=== PATIENT | female | born 1950 | race Caucasian/White ===

== ENCOUNTER → 2017-02-20 | Day surgery (SDC) | payer OTHER ==
[2017-01-23 08:17] VITALS: Ht 167.6 cm; Wt 109.1 kg
[~2017-02-20] VITALS: Ht 167.6 cm; Wt 109.1 kg
[~2017-02-20] MED LIST: 500ML BSS 0.3ML EPI 1:1000PF IRRIG ONE; ACETAMINOPHEN 325 MG TAB PO PRN; AMVISC PLUS 0.8ML SYRINGE INT OCU ONE; ATROPINE SULFATE 0.1 MG/ML 5ML SYR IV PRN; ATROPINE SULFATE 1% OP SOLN 2 ML BTL ONE; AcetylCHOLine CHL OP SOL 1:100 2 ML BTL ONE; BRIMONIDINE TART 0.2% OP SOLN PER DROP CHARGE ONE; BSS FLUSH ONE; CYAN10005 PO; EpHEDrine SULFATE INJ 50 MG/ML AMP IV PRN; EpINEphrine INJ 1MG/ML AMP 1 MG/ML AMP ONE; FENTANYL CITRATE INJ 50 MCG/1 ML 2 ML VIAL ONE; GLUCTAB7 PO; HEALON 10MG/ML 0.85 ML SYR INSTIL ONE; LACTATED RINGER'S 1000ML 500 ML IV SCH; LATA0.5S OPB; LEVO125T4 PO; LIDOCAINE 4% OP SOLN DROP CHARGE ONE; LIDOCAINE 4% OP SOLN DROP CHARGE OPL SCH; LIDOCAINE HCL 1% MPF 2 ML VIAL ONE; LOSA1TAB38 PO; MIDAZOLAM HCL 1 MG/ML 2ML VIAL ONE; MOXIFLOXACIN OPH SOLN PER DROP CHARGE ONE; NVLNI SC; NVLRB SC; OMEG10007 PO; ONDANSETRON INJ 2 MG/ML 2 ML VIAL IV PRN; POVIDONE-IODINE OP SOLN 30 ML BTL ONE; PROPARACAINE 0.5% OP SOLN PER DROP CHARGE OPL SCH; SIMV20TA2 PO; SPR25 PO; TETRACAINE HCL (OPHTH) 60 DROPS/4 ML BTL OP ONE; TIMO0.5S35 OPB; TOBRAMYCIN/DEXAMETHASONE OPH OINT PER APPLN CHARGE ONE; [UNRECOGNIZED DRUG - CODE] OPL
[2017-02-20] MEDS: PHENYLEPHRINE HCL 2.5% OP SOLN PER DROP CHARGE OPL SCH ×2 (10:08→10:13)
[2017-02-20] MEDS: TROPICAMIDE 1% OP SOLN PER DROP CHARGE OPL SCH ×2 (10:09→10:14)
[2017-02-20] MEDS: CYCLOPENTOLATE HCL 1% OP SOLN PER DROP CHARGE OPL SCH ×2 (10:10→10:15)
[2017-02-20] MEDS: KETOROLAC 0.5% OP SOLN PER DROP CHARGE OPL SCH ×2 (10:11→10:16)
[2017-02-20] MEDS: MOXIFLOXACIN OPH SOLN PER DROP CHARGE OPL SCH ×2 (10:12→10:23)
--- NOTE | 2017-02-20 10:31 | History & Physical Bridge - [place] ---
H&P Re-Evaluation Bridge Note: I have examined the patient, reviewed the History & Physical and in the interval since the performance of the History & Physical I have noted the following changes of clinical significance: No changes noted
--- NOTE | 2017-02-20 12:15 | Discharge Instructions-SurgCtr ---
Discharge Instructions Date of Service Feb 20, 2017. Visit Reason for Visit: Cataract Left Eye, Endothelial Corneal Dystrophy Discharge Discharge Diagnosis / Problem: cataract left eye Discharge Goals Goal(s): Improve function Activity Recommendations Activity Limitations: per Instructions/Follow-up section Lifting Limitations: none Anesthesia . Post Anesthesia Instructions: If you have had General Anesthesia or IV Sedation: * Do not drive today. * Resume driving when surgeon permits. * Do not make important decisions or sign legal documents today. * Call surgeon for: 1. Temperature elevations greater than 101 degrees F. 2. Uncontrollable pain. 3. Excessive bleeding. 4. Persistent nausea and vomiting. 5. Medication intolerance (nausea, vomiting or rash). * For nausea and vomiting use only clear liquids such as: tea, soda, bouillon until nausea subsides, then gradually increase diet as tolerated. * If you have any concerns or questions, call your surgeon's office. If physician is unavailable and it is an emergency, call 911 or go to the nearest emergency room. . Instructions / Follow-Up Instructions / Follow-Up ACTIVITY RECOMMENDATIONS: * Bedrest (eyes to the domingo) MEDICATIONS: Resume previous medications unless instructed otherwise by your surgeon. Eye drops (today and tomorrow): Cipro - one drop in operative eye every 2 hours while awake Prednisolone 1% - one drop in operative eye every 2 hours while awake Ilevro - one drop in operative eye 1 x daily Bromfenac - one drop in operative eye twice daily Timolol - one drop in operative eye once daily Latanoprost - one drop in operative eye once daily SPECIAL CARE INSTRUCTIONS: * If any problems or concerns, please call Dr. Orosco's office at . * Keep plastic shield taped over eye to sleep at night. * Keep plastic shield taped over eye except to administer eye drops. * Keep plastic shield on until office visit the following day. FOLLOW UP VISIT: Follow-up with Dr. Orosco in the [place] office as scheduled. If not already scheduled, please call the office at . Diet Recommendations Home Diet: resume previous diet Procedures Procedures Performed: Left Eye Descements Stripping Automated Endothelial Keratoplasty With Left Eye Cataract Extraction And Lens Implant Pending Studies Studies pending at discharge: no Medical Emergencies . Who to Call and When: Medical Emergencies: If at any time you feel your situation is an emergency, please call 911 immediately. . Non-Emergent Contact Non-Emergency issues call your: Material Clerk . . "Provider Documentation" section prepared by Manuel Orosco. .
--- NOTE | 2017-02-20 12:16 | [facility] Post Operative Brief Note ---
Immediate Operative Summary Operative Date Feb 20, 2017. Pre-Operative Diagnosis Cataract Left eye, Endothelial Corneal Dystrophy Post-Operative Diagnosis same as preop Procedure(s) Performed Left Eye Descements Stripping Automated Endothelial Keratoplasty With Left Eye Cataract Extraction And Lens Implant Surgeon Dr. Orosco Repair Order Clerk Surgeon(s) none Estimated Blood Loss 0ml Findings cataract/ corneal edema/ fuchs dystrophy left eye Fluids (cc crystalloids) see anesthesia record Specimens Culture of Corneal Rim Drains none Anesthesia local with sedation Complication(s) None Disposition Recovery Room / PACU
--- NOTE | 2017-02-20 12:55 | OPERATIVE REPORT ---
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 POSTOPERATIVE DIAGNOSES: Same. PROCEDURES PERFORMED: Phacoemulsification cataract extraction with intraocular lens placement and Descemet stripping automated endothelial keratoplasty, left eye. COMPLICATIONS: None. ESTIMATED BLOOD LOSS: None. ANESTHESIA: Local with sedation. DESCRIPTION OF PROCEDURE: After an informed consent was obtained in the holding area, attention was first turned to the donor cornea. It was placed endothelial side up on Linda trephine and trephinated with an 8.25-mm blade by myself. It was then covered in Optisol and set aside. The patient was then brought back to the operating room, where cardiac monitoring leads and oxygen by nasal cannula were administered by anesthesia. Gentle IV sedation was given and the patient's left eye was prepped and draped in the usual sterile fashion. A wire lid speculum was placed in the left eye and the operating microscope was swung into position. Using 0.12 forceps and a supersharp blade, a paracentesis port was made at the 5 o'clock position of the patient's left eye. 1% nonpreserved lidocaine was injected into the anterior chamber for anesthesia. A 2.0-mm keratome blade was then used to make a shelved clear cornea incision at the 3 o'clock position of the patient's left eye. The anterior chamber was then filled with Healon. The previously used Linda trephine was then inked and used to elsy the surface of the cornea. A curvilinear capsulorrhexis was then performed with the cystotome and Utrata forceps. BSS on a hydrodissection cannula was then used to hydrodissect the lens nucleus away from the capsular bag. The phacoemulsification handpiece was then used in a stop and chop fashion to remove the lens nucleus. Irrigation aspiration handpiece was then used to remove the residual cortical material. The eye was then filled with Healon. The main incision enlarged to 4 mm and a Bausch and Lomb MX60, 25.0 Diopter intraocular lens was injected into the capsular bag. Reversed Sinskey hook was then used to score Descemet's membrane around the marked diameter. Descemet stripper was then used to remove the strip Descemet's from within that diameter. A stromal loom blower was then used to roughen the stromal bed in the periphery of the stripped area. Irrigation aspiration handpiece was then used to remove the residual viscoelastic material from the eye. The donor cornea was then placed endothelial side up on an EndoSerter and retracted into the EndoSerter. The EndoSerter was then used to inject the donor cornea into the host eye through the primary incision. It was unfolded underneath BSS and air and a single 10-0 nylon suture was placed through the main incision. A complete air fill of the eye was then achieved and held for 15 minutes, during which time the cornea was covered in Healon. After 15 minutes was up, the Healon was rinsed off the cornea and 3 drops of atropine were placed on it. A [place] [employer] roller was then used to milk the interface. The cornea was then recovered using Amvisc and another 10 minutes elapsed. At the conclusion of 10 minutes, the Amvisc was rinsed from the surface of the cornea and a partial air fluid exchange was done leaving behind a 60% air fill of the anterior chamber. ReSure sealant was then placed over the primary incision and paracentesis. The wire lid speculum was removed from the eye. Vigamox, brimonidine and TobraDex ointment were placed on the eye and the eye was shielded. The patient tolerated the procedure well and was taken to recovery area to lay flat for an hour. I attest to the content of the Intraoperative Record and any orders documented therein. Any exceptions are noted below. PRAFUL
--- NOTE | 2017-02-20 13:09 | Anesthesia Progress Nt - [facility] ---
Anesthesia Post Op Note Date & Time Feb 20, 2017 at 13:09 Vital Signs Pain Intensity: 0 Vital Signs Past 12 Hours Date Time Temp Pulse Resp B/P (MAP) Pulse Ox O2 Delivery O2 Flow Rate FiO2 02/20/17 12:13 36.7 74 16 141/81 (101) 95 Room Air 02/20/17 09:58 36.7 75 22 129/80 (96) 97 Room Air Notes Mental Status: alert / awake / arousable, participated in evaluation Pt Amnestic to Procedure: Yes Nausea / Vomiting: adequately controlled Pain: adequately controlled Airway Patency, RR, SpO2: stable & adequate BP & HR: stable & adequate Hydration State: stable & adequate Anesthetic Complications: no major complications apparent
[2017-02-20 13:30] VITALS: BP 136/80; PULSE 78; O2SAT 96
== END | disposition home or self-care (01) ==
LOC: X.SURG 09:43
PROVIDERS: ATTEND Ophthalmology
DX: H25.12 Age-related nuclear cataract, left eye (principal); H18.51 Endothelial corneal dystrophy; H18.20 Unspecified corneal edema; I10 Essential (primary) hypertension; E10.9 Type 1 diabetes mellitus without complications; E03.9 Hypothyroidism, unspecified; Z79.4 Long term (current) use of insulin; Z79.899 Other long term (current) drug therapy

== ENCOUNTER → 2017-05-29 | Day surgery (SDC) | payer OTHER ==
[2017-05-22 10:54] VITALS: Ht 167.6 cm; Wt 113.6 kg
[~2017-05-29] VITALS: Ht 167.6 cm; Wt 113.6 kg
[~2017-05-29] MED LIST changes: +ACETAZOLAMIDE IV PUSH 500 MG in SYRINGE 0 ML IV ONE; -AMVISC PLUS 0.8ML SYRINGE INT OCU ONE; +AcetaZOLAMIDE 500 MG CAPCR ONE; +DiphenhydrAMINE HCL 50 MG/ML VIAL ONE; -EpHEDrine SULFATE INJ 50 MG/ML AMP IV PRN; -FENTANYL CITRATE INJ 50 MCG/1 ML 2 ML VIAL ONE; +LACTATED RINGER'S 1000ML 1,000 ML IV SCH; -LEVO125T4 PO; +LEVO125T5 PO; +LIDOCAINE 3.5% OPH GEL PER APPLICATION CHARGE OPR SCH; -LIDOCAINE 4% OP SOLN DROP CHARGE OPL SCH; +LIDOCAINE 4% OP SOLN DROP CHARGE OPR SCH; +MANNITOL 25% 50 ML VIAL ONE; +MOXIFLOXACIN OPH SOLN PER DROP CHARGE OPR SCH; -ONDANSETRON INJ 2 MG/ML 2 ML VIAL IV PRN; +ONDANSETRON INJ 2 MG/ML 2 ML VIAL ONE; -PROPARACAINE 0.5% OP SOLN PER DROP CHARGE OPL SCH; +PROPARACAINE 0.5% OP SOLN PER DROP CHARGE OPR SCH
[2017-05-29] MEDS: PHENYLEPHRINE HCL 2.5% OP SOLN PER DROP CHARGE OPR SCH ×2 (10:24→10:29)
[2017-05-29] MEDS: TROPICAMIDE 1% OP SOLN PER DROP CHARGE OPR SCH ×2 (10:25→10:30)
[2017-05-29] MEDS: CYCLOPENTOLATE HCL 1% OP SOLN PER DROP CHARGE OPR SCH ×2 (10:26→10:31)
[2017-05-29] MEDS: KETOROLAC 0.5% OP SOLN PER DROP CHARGE OPR SCH ×2 (10:27→10:32)
[2017-05-29] MEDS: MOXIFLOXACIN OPH SOLN PER DROP CHARGE OPR SCH ×2 (10:28→10:38)
--- NOTE | 2017-05-29 13:20 | Discharge Instructions-SurgCtr ---
Discharge Instructions Date of Service May 29, 2017. Visit Reason for Visit: Right Eye Fuch's Dystrophy, Cataract Discharge Discharge Diagnosis / Problem: Fuchs corneal dystrophy and cataract Right eye Discharge Goals Goal(s): Improve function Medications Stopped Medications Name(s): Am insulin dosage cut in half this am Activity Recommendations Activity Limitations: per Instructions/Follow-up section Lifting Limitations: no more than 5 pounds Anesthesia . Post Anesthesia Instructions: If you have had General Anesthesia or IV Sedation: * Do not drive today. * Resume driving when surgeon permits. * Do not make important decisions or sign legal documents today. * Call surgeon for: 1. Temperature elevations greater than 101 degrees F. 2. Uncontrollable pain. 3. Excessive bleeding. 4. Persistent nausea and vomiting. 5. Medication intolerance (nausea, vomiting or rash). * For nausea and vomiting use only clear liquids such as: tea, soda, bouillon until nausea subsides, then gradually increase diet as tolerated. * If you have any concerns or questions, call your surgeon's office. If physician is unavailable and it is an emergency, call 911 or go to the nearest emergency room. . Instructions / Follow-Up Instructions / Follow-Up ACTIVITY RECOMMENDATIONS: * Bedrest- Eyes to the domingo * Mild irritation and blurred vision are common for the first few days, redness around the white part of the eye is common. MEDICATIONS: Resume previous medications unless instructed otherwise by your surgeon. Eye drops (today and tomorrow): Cipro - one drop in operative eye every 2 hours while awake Prednisolone 1% - one drop in operative eye every 2 hours while awake Ketorolac - one drop in operative eye every 2 hours while awake SPECIAL CARE INSTRUCTIONS: * If any problems or concerns, please call Dr. Orosco's office at . * Keep plastic shield taped over eye to sleep at night. * Keep plastic shield taped over eye except to administer eye drops. * Keep plastic shield on until office visit the following day. FOLLOW UP VISIT: Follow-up with Dr. Orosco in the [place] office as scheduled. If not already scheduled, please call the office at . Diet Recommendations Home Diet: resume previous diet Procedures Procedures Performed: Right Descements Stripping Automated Endothelial Keratoplasty, Right Cataract Phacoemulsification With Intraocular Lens Implant; Back Bench Pending Studies Studies pending at discharge: yes List of pending studies: donor culture Medical Emergencies . Who to Call and When: Medical Emergencies: If at any time you feel your situation is an emergency, please call 911 immediately. . Non-Emergent Contact Non-Emergency issues call your: Dehydrator Tender . . "Provider Documentation" section prepared by Manuel Orosco. .
--- NOTE | 2017-05-29 13:21 | [facility] Post Operative Brief Note ---
Immediate Operative Summary Operative Date May 29, 2017. Pre-Operative Diagnosis Right Eye Fuch's Dystrophy, Cataract Post-Operative Diagnosis Same Procedure(s) Performed Right Descements Stripping Automated Endothelial Keratoplasty, Right Cataract Phacoemulsification With Intraocular Lens Implant; Back Bench Surgeon Dr. Sergio Orosco Shrimp Peeler Surgeon(s) None Estimated Blood Loss 0 Findings fuchs corneal dystrophy and cataract right eye Fluids (cc crystalloids) see anesthesia record Specimens Culture sent of donor cornea rim Drains none Anesthesia local with sedation Complication(s) None Disposition Recovery Room / PACU
--- NOTE | 2017-05-29 13:54 | OPERATIVE REPORT ---
DATE OF OPERATION: 05/29/2017 PREOPERATIVE DIAGNOSIS: Cataract and Fuchs' corneal dystrophy, right eye. POSTOPERATIVE DIAGNOSIS: Same. PROCEDURE PERFORMED: Phacoemulsification cataract extraction with intraocular lens placement and Descemet stripping automated endothelial keratoplasty, right eye. COMPLICATIONS: None. ESTIMATED BLOOD LOSS: None. ANESTHESIA: Local with sedation. DESCRIPTION OF PROCEDURE: After informed consent was obtained in the holding area, attention was first turned to the donor cornea. It was placed endothelial side up on the trephine stand and trephinated with an 8.25-mm Linda trephine. The cornea was then covered in Optisol and set aside. The patient was then brought back to the operating room, where cardiac monitoring leads and oxygen by nasal cannula was administered by anesthesia. Gentle IV sedation was given and the patient's right eye was prepped and draped in the usual sterile fashion. Wire lid speculum was placed in the right eye and the operating microscope swung into position. Using 0.12 forceps and a supersharp blade, a paracentesis port was made at the 11 o'clock position of the patient's right eye. 1% nonpreserved lidocaine was injected into the anterior chamber for anesthesia. A 2.0-mm keratome blade was then used to make a shelved clear cornea incision at the 9 o'clock position of the patient's right eye. The anterior chamber was then filled with Healon and a curvilinear capsulorrhexis was performed with the cystotome and Utrata forceps. BSS and hydrodissection cannula was then used to hydrodissect the lens nucleus away from the capsular bag. The phacoemulsification handpiece was then used in a stop and chop fashion to remove the lens nucleus. Irrigation aspiration handpiece was then used to remove the cortical material. The eye was then filled with Healon. The main incision enlarged to 4 mm and a Bausch and Lomb MX60, 29.0 Diopter intraocular lens was injected into the capsular bag. The previously used corneal trephine was then inked and used to elsy the surface of the host cornea and a reversed Sinskey hook was then used to score and strip the Descemet's membrane from within the marked area. The Descemet stripper removed the Descemet's membrane from within the eye. Stromal labor crew supervisor was then used to roughen the stromal bed in the periphery. The irrigation and aspiration handpiece was then used to remove the viscoelastic material from the eye. The donor cornea was then placed endothelial side up on the EndoSerter and a drop of Healon was placed on it and it was retracted into the EndoSerter. The Endoserter was then used to insert the corneal graft into the eye. It was unfolded underneath BSS and air and a single 10-0 nylon suture was placed through the main incision for extra wound security. The graft was positioned using the [place] [facility] roller and air was attempted to be injected into the eye. At this time, the patient squeezed and the chamber shallowed. I was able to get air on the eye for approximately an 80% air fill with a moderately high pressure. My feeling at that time was that the patient developed choroidal detachment likely from the squeezing in the short eye patient. We started mannitol 50 grams IV to be run in over the hour. We also gave her Diamox 500 mg IV. Once 25 minutes elapsed with the 80% air fill and a moderately high pressure, an air fluid exchange was done and the chamber deepened as a mannitol ____ to lessen the intraocular volume. A 60% air bubble was left in the eye and ReSure sealant was placed over the paracentesis as well as the primary incision. Atropine drops were also placed on the eye. The wire lid speculum was removed from the eye. Vigamox, brimonidine and TobraDex ointment were placed on the eye and the eye was shielded. The patient was taken to recovery to receive the rest of her Diamox IV and then to be sent home in little over an hour. I attest to the content of the Intraoperative Record and any orders documented therein. Any exception s are noted below.
[2017-05-29 14:15] VITALS: TEMP 36.2
--- NOTE | 2017-05-29 14:20 | Anesthesia Progress Nt - [facility] ---
Anesthesia Post Op Note Date & Time May 29, 2017 at 14:20 Vital Signs Pain Intensity: 0 Vital Signs Past 12 Hours Date Time Temp Pulse Resp B/P (MAP) Pulse Ox O2 Delivery O2 Flow Rate FiO2 05/29/17 14:08 86 18 96 05/29/17 14:08 85 18 05/29/17 14:08 36.2 96 Room Air 05/29/17 14:06 170/96 05/29/17 14:03 91 14 94 05/29/17 14:03 92 14 05/29/17 14:01 177/122 05/29/17 13:58 89 20 96 05/29/17 13:58 89 20 05/29/17 13:56 163/90 05/29/17 13:53 86 17 05/29/17 13:53 85 17 94 05/29/17 13:51 170/89 05/29/17 13:48 87 16 95 05/29/17 13:48 86 16 05/29/17 13:46 174/84 05/29/17 13:43 87 16 97 05/29/17 13:43 87 16 05/29/17 13:41 172/82 05/29/17 13:38 80 16 05/29/17 13:38 81 16 100 05/29/17 13:37 81 16 100 05/29/17 13:37 82 16 05/29/17 13:36 161/84 05/29/17 13:32 76 15 05/29/17 13:32 77 15 99 05/29/17 13:31 163/80 05/29/17 13:27 82 16 05/29/17 13:27 80 16 100 05/29/17 13:26 80 15 05/29/17 13:26 79 15 153/81 100 05/29/17 13:21 82 15 05/29/17 13:21 82 15 155/84 99 05/29/17 13:17 156/74 05/29/17 13:16 36.3 83 16 156/74 99 Nasal Cannula 2 05/29/17 10:07 36.4 85 18 165/84 (111) 96 Room Air Notes Mental Status: alert / awake / arousable, participated in evaluation Pt Amnestic to Procedure: Yes Nausea / Vomiting: adequately controlled Pain: adequately controlled Airway Patency, RR, SpO2: stable & adequate BP & HR: stable & adequate Hydration State: stable & adequate Anesthetic Complications: no major complications apparent
[2017-05-29 14:43] VITALS: BP 141/80; PULSE 72; O2SAT 98
== END | disposition home or self-care (01) ==
LOC: X.SURG 09:26
PROVIDERS: ATTEND Ophthalmology
DX: H18.51 Endothelial corneal dystrophy (principal); E11.36 Type 2 diabetes mellitus with diabetic cataract; H26.9 Unspecified cataract; I10 Essential (primary) hypertension; Z87.891 Personal history of nicotine dependence; Z98.42 Cataract extraction status, left eye; Z79.4 Long term (current) use of insulin; Z83.3 Family history of diabetes mellitus